=== PATIENT | female | born 1990 | race Caucasian/White ===

== ENCOUNTER 2020-09-14 12:39 | Emergency (ER) | payer BC, SELFPAY ==
[2020-09-14 12:40] VITALS: BP 131/87; PULSE 88; RESP 18; TEMP 36.6; O2SAT 98; BMI 25.7
--- NOTE | 2020-09-14 12:57 | PC.NURSE ---
calling cpd at this time
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
--- NOTE | 2020-09-14 13:10 | PC.NURSE ---
PATIENT REPORTS SHE HAS HAD A TUBAL
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
[2020-09-14 14:20] VITALS: BP 137/96; PULSE 81; RESP 16; TEMP 36.7; O2SAT 99
== END 2020-09-14 14:35 | disposition home or self-care (01) ==
PROVIDERS: Emergency Provider Emergency Medicine; PCP Pediatrics
DX: S00.83XA Contusion of other part of head, initial encounter (principal); S60.222A Contusion of left hand, initial encounter; Y04.2XXA Assault by strike against or bumped into by another person, initial encounter; Y92.019 Unspecified place in single-family (private) house as the place of occurrence of the external cause; Z88.2 Allergy status to sulfonamides; Z88.5 Allergy status to narcotic agent
CPT/HCPCS: 70450; 70486; 73130; 99282

== ENCOUNTER 2020-10-17 11:34 | Emergency (ER) | payer BC, SELFPAY ==
[2020-10-17 11:35] VITALS: BP 126/75; PULSE 85; RESP 19; TEMP 36.8; O2SAT 99; BMI 24.2
--- NOTE | 2020-10-17 12:08 | HMH.EDUTC ---
[facility] [place] Disposition Clinical Impression: Pharyngitis Qualifiers: Pharyngitis/tonsillitis etiology: unspecified etiology Qualified Code(s): J02.9 - Acute pharyngitis, unspecified Disposition: Home, Self-Care Condition on Discharge: Good Instructions: Sore Throat, DI for Pharyngitis/Tonsillopharyngitis -- Adult Additional Instructions: Drink plenty of fluids. Take tylenol for pain or fever. Return if you begin to have difficulty breathing. Follow up with your regular doctor. GO TO THE ER FOR ANY WORSENING SYMPTOMS Prescriptions: Brompheniramine/Pseudoephed/Dm [Bromfed Dm Cough Syrup] 5 ml PO Q6HP PRN #240 syrup PRN Reason: Cough Transmission Status: Received by [place] [id number] Amoxicillin [Amoxicillin 500mg Tab] 500 mg PO TID 10 Days #30 tab Transmission Status: Received by [place] [id number] predniSONE [Deltasone 10mg tablet] 10 mg PO BID 3 Days #6 tab Transmission Status: Received by [place] [id number] Referrals: Cecilia Paris [Primary Care Provider] - Forms: Work/School Release Time of Disposition: 12:10 Medical Decision Making - Medical Records Medical records reviewed: No: I reviewed the patient's medical records. - Gregorio Inquiry Pt receiving controlled substance: No Vital Signs: 10/17/20 11:35 10/17/20 12:19 Temperature 98.3 F 98.3 F Temperature Source Oral Pulse Rate 85 Pulse Rate [Right Brachial] 85 Respiratory Rate 19 19 Blood Pressure 126/75 Blood Pressure [Right Arm] 126/75 Blood Pressure Mean [Right Arm] 92 Blood Pressure Source [Right Arm] Automatic Cuff Blood Pressure Position [Right Arm] Sitting 02 Sat by Pulse Oximetry 99 Oxygen Delivery Method Room Air - Lab Data Lab results reviewed: Yes: I reviewed the patient's lab results. Lab Results 10/17/20 11:37: Strep Scn Rapid Clinic Negative Orders (Tests/Meds): ORDERS Category Date Time Status Strep Screen Confirmation Stat Micro 10/17/20 11:37 Received [facility] [place] HPI - General Stated complaint: possible strep Time Seen by Provider: 10/17/20 12:08 Mode of Arrival: Ambulatory Source of Information: Patient Limitations: No Limitations Description of Symptoms (Recalled from Triage Doc. by RN): PATIENT C/O HEADACHE AND SORE THROAT X 2 DAYS HEENT Symptoms (Recalled from RN notes): Yes Resp Symptoms (Recalled from RN notes): No Skin Symptoms (Recalled from RN notes): No MS Symptoms (Recalled from RN notes): No Functional Status (Recalled from RN notes): WNL - History of Present Illness Provider Complaint: She c/o sore throat for the past 2 days. Her son was recently diagnosed with strep throat. She denies any covid exposure and states that she does not need to be tested. - Related Data Previous Rx's Medication Instructions Recorded Amoxicillin [Amoxicillin 500mg Tab] 500 mg PO TID 10 Days #30 tab 10/17/20 Brompheniramine/Pseudoephed/Dm 5 ml PO Q6HP PRN #240 syrup 10/17/20 [Bromfed Dm Cough Syrup] predniSONE [Deltasone 10mg tablet] 10 mg PO BID 3 Days #6 tab 10/17/20 Allergies Allergy/AdvReac Type Severity Reaction Status Date / Time morphine Allergy Verified 09/14/20 13:05 Sulfa (Sulfonamide Allergy Verified 09/14/20 13:05 Antibiotics) - Worker's Comp Is this a Worker's Comp case?: No [facility] History - Hepatitis A Screen Drug use history?: No High risk sexual behaviors?: No History of sexually transmitted infection?: No Currently employed?: No Childcare worker?: No Do you have indoor plumbing?: Yes Do you have electricity?: Yes Attestation statement:: This patient has been screened for Hepatitis A risk factors. I have reviewed the patient's past medical history: Yes ROS Obtained: Yes All systems reviewed & no additional complaints - Constitutional Constitutional: Reports system reviewed and no additional complaints, except as docu - Eyes Eyes: Reports system reviewed and no additional complaints, except as docu - ENT Ears, Nose, Mouth, and T
[2020-10-17 12:19] VITALS: BP 126/75; PULSE 85; RESP 19; TEMP 36.8; O2SAT 99
[2020-10-17 20:28] LABS: UTC Strep Screen (Rapid) Negative (Negative)
== END 2020-10-17 12:25 | disposition home or self-care (01) ==
PROVIDERS: Emergency Provider Nurse Practitioner Family; PCP Pediatrics
DX: J02.9 Acute pharyngitis, unspecified (principal); R51.9 Headache, unspecified
CPT/HCPCS: 87880; 99202; G0463

== ENCOUNTER 2020-11-24 15:20 | Emergency (ER) | payer BC, SELFPAY ==
[2020-11-24 15:20] VITALS: BP 135/87; PULSE 81; RESP 19; TEMP 36.9; O2SAT 99; BMI 25.4
[2020-11-24 16:09] VITALS: BP 135/87; PULSE 81; RESP 18; TEMP 36.9; O2SAT 99
--- NOTE | 2020-11-24 16:11 | HMH.EDUTC ---
[facility] [place] Clinical Impression: UTI (urinary tract infection) Qualifiers: Urinary tract infection type: site unspecified Hematuria presence: with hematuria Qualified Code(s): N39.0 - Urinary tract infection, site not specified Disposition: Home, Self-Care Condition on Discharge: Good Instructions: DI for Urinary Tract Infection (UTI) Additional Instructions: Drink plenty of fluids. Take tylenol or ibuprofen for pain or fever. Take the medications as directed. Follow up with your regular doctor. GO TO THE ER FOR ANY WORSENING SYMPTOMS The pyridium will make your urine turn orange, this is an expected side effect. It will stain your clothes if it comes into contact with them. Prescriptions: Ondansetron [Zofran 4mg ODT] 4 mg PO Q8HP PRN #12 tab.rapdis PRN Reason: Nausea Transmission Status: Received by [place] [id number] Ciprofloxacin HCl [Cipro 500mg Tab] 500 mg PO BID 7 Days #14 tab Transmission Status: Received by [place] [id number] Phenazopyridine HCl [Pyridium 200mg Tablet] 200 pow PO TID #6 tab Transmission Status: Received by [place] [id number] Referrals: Cecilia Paris [Primary Care Provider] - Forms: Work/School Release Time of Disposition: 16:14 Medical Decision Making - Medical Records Medical records reviewed: No: I reviewed the patient's medical records. - Gregorio Inquiry Pt receiving controlled substance: No Vital Signs: 11/24/20 15:20 11/24/20 16:09 Temperature 98.4 F 98.4 F Temperature Source Oral Oral Pulse Rate 81 Pulse Rate [Left Radial] 81 Respiratory Rate 19 18 Blood Pressure 135/87 Blood Pressure [Right Arm] 135/87 Blood Pressure Mean [Right Arm] 103 Blood Pressure Source Automatic Cuff Blood Pressure Source [Right Arm] Automatic Cuff Blood Pressure Position Sitting Blood Pressure Position [Right Arm] Sitting 02 Sat by Pulse Oximetry 99 Oxygen Delivery Method Room Air Room Air - Lab Data Lab results reviewed: Yes: I reviewed the patient's lab results. Lab Results 11/24/20 15:49: Urine Color Dark yellow, Urine Appearance Clear, Urine pH 6.0, Ur Specific [place] >= 1.030, Urine Protein 3+, Urine Glucose (UA) Negative, Urine Ketones Moderate, Urine Blood 1+, Urine Nitrate Positive A, Urine Bilirubin 1+ A, Urine Urobilinogen 1, Ur Leukocyte Esterase Trace 11/24/20 : Urine Color Dk yellow, Urine Appearance Cloudy, Urine pH 6.0, Ur Specific [place] >= 1.030, Urine Protein 1+, Urine Glucose (UA) Negative, Urine Ketones Trace, Urine Blood 1+, Urine Nitrate Positive, Urine Bilirubin 1+ A, Urine Urobilinogen 1.0, Ur Leukocyte Esterase 1+ A, Urine RBC 10-20, Urine WBC 5-10, Ur Squamous Epith Cells 3-5, Calcium Oxalate Crystal 1+, Urine Bacteria 1+ Orders (Tests/Meds): ORDERS Category Date Time Status Urine Culture Stat Micro 11/24/20 [place] [facility] [place] - General Stated complaint: Possible UTI Time Seen by Provider: 11/24/20 16:00 Mode of Arrival: Ambulatory Source of Information: Patient Limitations: No Limitations Description of Symptoms (Recalled from Triage Doc. by RN): c/o burning with urination for 3 days. Exposed to sti HEENT Symptoms (Recalled from RN notes): No Resp Symptoms (Recalled from RN notes): No Skin Symptoms (Recalled from RN notes): No MS Symptoms (Recalled from RN notes): No Functional Status (Recalled from RN notes): wnl - History of Present Illness Provider Complaint: She c/o feeling like she has a uti for the past 2 days. - Related Data Previous Rx's Medication Instructions Recorded Amoxicillin [Amoxicillin 500mg Tab] 500 mg PO TID 10 Days #30 tab 10/17/20 Brompheniramine/Pseudoephed/Dm 5 ml PO Q6HP PRN #240 syrup 10/17/20 [Bromfed Dm Cough Syrup] predniSONE [Deltasone 10mg tablet] 10 mg PO BID 3 Days #6 tab 10/17/20 Fluconazole [Diflucan 150mg tab] 150 mg PO ONCE #1 tab 10/23/20 Ciprofloxacin HCl [Cipro 500mg 500 mg PO BID 7 Days #14 tab 11/24/20 Tab] Ondansetron [Zofran 4mg
[2020-11-24 17:35] LABS: Apearance,Urine Clear (Clear); Color,Urine Dark Yellow (Yellow)
[2020-11-24 17:36] LABS: Blood, Urine 1+ (Negative); Glucose,Urine (UA) Negative (Negative); Ketones,Urine Moderate (Negative); Protein,Urine 3+ (Negative); Specific Gravity, Urine >= 1.030 (1.005-1.030)
[2020-11-24 17:37] LABS: Bilirubin,Urine 1+ (Negative); UTC Leukocyte Esterase,Urine Trace (Negative); UTC Nitrate,Urine Positive (Negative); Urobilinogen,Urine 1 EU/dl (0.2)
[2020-11-24 22:07] LABS: Microscopic, Urine URINE MICROSCOPIC (MICROSCOPIC)
[2020-11-24 22:14] LABS: Appearance,Urine CLOUDY (Clear); Blood, Urine 1+ (Negative); Color,Urine DK YELLOW (Yellow); Glucose,Urine (UA) Negative (Negative); Ketones,Urine TRACE (Negative); Leukocyte Esterase,Urine 1+ (Negative); Nitrate,Urine POSITIVE (Negative); Protein,Urine 1+ (Negative); Specific Gravity, Urine >= 1.030 (1.005-1.030)
[2020-11-24 22:21] LABS: Bilirubin,Urine 1+ (Negative)
[2020-11-24 22:24] LABS: Bacteria,Urine 1+ /lpf; Calcium Oxalate Crystals,Urine 1+ /lpf
[2020-11-27 19:47] LABS: Neisseria gonorrhoeae, NAA Negative (Negative)
== END 2020-11-24 16:19 | disposition home or self-care (01) ==
PROVIDERS: Emergency Provider Nurse Practitioner Family; PCP Pediatrics
DX: N30.00 Acute cystitis without hematuria (principal); B96.20 Unspecified Escherichia coli [E. coli] as the cause of diseases classified elsewhere; Z88.2 Allergy status to sulfonamides; Z88.5 Allergy status to narcotic agent
CPT/HCPCS: 81001; 81003; 87086; 87088; 87186; 87491; 87591; 99202; G0463

== ENCOUNTER 2020-11-25 09:45 | Emergency (ER) | payer BC, SELFPAY ==
[2020-11-25 09:46] VITALS: BP 139/74; PULSE 73; RESP 16; TEMP 36.6; O2SAT 98; BMI 25.6
[2020-11-25 10:24] LABS: Basophils % 0.5 % (0.1-2.0); Eosinophils # 0.1 K/mm3 (0.0-0.4); Eosinophils % 1.4 % (0.1-12.0); Hematocrit 43.6 % (37.0-47.0); Hemoglobin 14.1 g/dL (12.2-16.2); Lymphocytes # 1.4 K/mm3 (0.7-4.5); Lymphocytes % 16.6 % (10-50); Mean Corpuscular HGB Conc 32.3 g/dL (31.8-35.4); Mean Corpuscular Hemoglobin 32.1 pg (27.0-31.2); Mean Corpuscular Volume 99.4 fl (81-99); Monocytes # 0.5 K/mm3 (0.1-1.0); Monocytes % 6.2 % (1.7-9.3); Neutrophils # 6.5 K/mm3 (1.8-7.8); Neutrophils % 75.3 % (37.0-80.0); Platelet Count 260 K/mm3 (142-424); Red Blood Count 4.39 M/mm3 (4.20-5.40); Red Cell Distribution Width 12.3 % (11.5-17.5); White Blood Count 8.6 K/mm3 (4.8-10.8)
[2020-11-25 10:34] LABS: Chloride 104 mmol/L (98-107); Potassium 3.9 mmoL/L (3.5-5.1); Sodium 139 mmol/L (136-145)
[2020-11-25 10:36] LABS: Alanine Aminotransferase 16 U/L (12-78); Aspartate Amino Transferase 26 U/L (14-36); Blood Urea Nitrogen 21 mg/dl (7-17); Creatinine Clearance Estimated 104 mL/min (50-200); Estimated Glomerular Filt Rate 85 ml/min (>60); GFR (African American) 103 ML/MIN (>60)
[2020-11-25 10:37] LABS: Albumin Level 4.7 g/dl (3.5-5.0); Albumin/Globulin Ratio 1.7 (1.1-1.8); Alkaline Phosphatase 101 U/L (38-126); Anion Gap 11.9 mEq/L (5-15); Bilirubin,Total 0.9 mg/dl (0.2-1.3); Calcium 9.3 mg/dl (8.4-10.2); Carbon Dioxide 27 mmol/L (22.0-30.0); Globulin 2.8 g/dL (1.3-3.2); Glucose 115 mg/dl (74-100); Total Protein,Serum 7.5 g/dl (6.3-8.2)
[2020-11-25 10:44] LABS: HCG Qualitative, Serum Negative (Negative)
[2020-11-25 10:49] VITALS: BP 113/61; PULSE 100; RESP 18; O2SAT 96
--- NOTE | 2020-11-25 11:08 | PC.NURSE ---
PT STATES FEELING IMPROVED AFTER MEDS GIVEN
--- NOTE | 2020-11-25 11:23 | HMH.EDGENADL ---
ED Disposition Clinical Impression: Pyelonephritis Disposition: Home, Self-Care Condition on Discharge: Good Instructions: DI for Kidney Infection Additional Instructions: Or you develop fever over the next 2 days please return to your primary care or the ER. Prescriptions: Cefdinir [Omnicef 300mg Capsule] 300 mg PO BID #20 cap Transmission Status: Pending to [place] [id number] Ondansetron [Zofran 4mg ODT] 4 mg PO TIDP PRN #9 tab PRN Reason: Nausea Transmission Status: Pending to [place] [id number] Referrals: Rebekah Paris PA [Primary Care Provider] - Time of Disposition: 13:25 - Critical Care Critical Care Time: No Attestation: On 11/25/20, the high probability of a clinically significant, sudden or life threatening deterioration of the following system(s) required my full and direct attention, intervention and personal management. The time I documented below is in addition to time spent performing reported procedures but includes the following listed in this critical care notation. Medical Decision Making - Medical Records Medical records reviewed: Yes: I reviewed the patient's medical records. - Gregorio Inquiry Pt receiving controlled substance: No Vital Signs: 11/25/20 09:46 11/25/20 10:49 Temperature 98 F Temperature Source Oral Pulse Rate 100 H Pulse Rate [Radial] 73 Respiratory Rate 16 18 Blood Pressure 113/61 Blood Pressure [Right Arm] 139/74 Blood Pressure Mean [Right Arm] 95 Blood Pressure Source [Right Arm] Manual Cuff/ Palpation Blood Pressure Position [Right Arm] Sitting 02 Sat by Pulse Oximetry 98 96 Oxygen Delivery Method Room Air - Lab Data Lab Results 11/25/20 10:05: WBC 8.6, RBC 4.39, Hgb 14.1, Hct 43.6, MCV 99.4 H, MCH 32.1 H, MCHC 32.3, RDW 12.3, Plt Count 260, MPV 7.0 L, Neut % (Auto) 75.3, Lymph % (Auto) 16.6, [place] % (Auto) 6.2, Eos % (Auto) 1.4, Baso % (Auto) 0.5, Neut # (Auto) 6.5, Lymph # (Auto) 1.4, [place] # (Auto) 0.5, Eos # (Auto) 0.1, Baso # (Auto) 0.0 11/25/20 10:05: Sodium 139, Potassium 3.9, Chloride 104, Carbon Dioxide 27, Anion Gap 11.9, BUN 21 H, Creatinine 0.80, Estimated Creat Clear 104, Estimated GFR 85, Est GFR ( Amer) 103, Glucose 115 H, Calcium 9.3, Total Bilirubin 0.9, AST 26, ALT 16, Alkaline Phosphatase 101, Total Protein 7.5, Albumin 4.7, Globulin 2.8, Albumin/Globulin Ratio 1.7 11/25/20 10:05: Serum HCG, Qual Negative Result diagrams: 11/25/20 10:05 11/25/20 10:05 Orders (Tests/Meds): ED MEDICATIONS Discontinued Medications Generic Name Dose Route Start Last Admin Trade Name Mazin PRN Reason Stop Dose Admin Fentanyl Citrate 50 mcg 11/25/20 12:31 11/25/20 12:38 Fentanyl 100mcg/2ml Vial IV 11/25/20 12:32 50 mcg ONCE ONE Administration Ceftriaxone Sodium 1 gm/ 50 mls @ 100 mls/hr 11/25/20 10:17 11/25/20 10:18 Sodium Chloride IV 11/25/20 10:46 100 mls/hr ONCE ONE Administration Protocol Ketorolac Tromethamine 30 mg 11/25/20 09:54 11/25/20 10:19 Ketorolac 30mg/Ml Vial IM 11/25/20 09:55 Not Given ONCE ONE Ketorolac Tromethamine 30 mg 11/25/20 10:16 11/25/20 10:18 Ketorolac 30mg/Ml Vial IV 11/25/20 10:17 30 mg ONCE ONE Administration Medical Decision Narrative: 30-year-old female with urinary tract infection diagnosed yesterday treated with ciprofloxacin. Patient now has evidence of early pyelonephritis. Urinalysis yesterday had crystals as well as nitrite positive UTI. No culture results as of this time. CT scan of the abdomen demonstrates no obstructing renal stones. She will be switched to cefdinir with a dose of ceftriaxone here in the department as I feel that she has not failed outpatient therapy of Cipro was not first-line choice of antibiotic based on current antibiogram General Adult HPI - General Chief complaint: PAIN Stated complaint: back pain Time Seen by Provider: 11/25/20 10:00 Mode of Arrival: Ambulatory Limitations: No Limitations
--- NOTE | 2020-11-25 11:25 | CT_ITS ---
PROCEDURE: CT ABDOMEN PELVIS WO CON CLINICAL INDICATION: flank pain eval stones Left lower quadrant pain, left flank pain COMPARISON: No exams were available for comparison TECHNIQUE: Axial images obtained with sagittal and coronal reformats. All CT scans at the facility use one or more dose reduction, viz: automated exposure control, ma/kV adjustment per patient size (including targeted exams where dose is matched to indication, i.e. head), or iterative reconstruction technique. FINDINGS: LOWER THORAX: No acute finding ABDOMEN & PELVIS: The liver, spleen, adrenal glands, and pancreas have an unremarkable unenhanced appearance. No radiopaque gallstones identified. There is a 3 mm nonobstructing stone in the lower pole of the left kidney. No hydronephrosis. No ureteral calculi parent. There is a moderate amount of retained colonic feces throughout the colon most prominent in the cecal region with the cecum measuring 8 cm in diameter. There is given history of prior appendectomy. No evidence of small-bowel obstruction. No obvious pelvic mass however pelvic structures are somewhat ill-defined secondary to the lack of IV and oral contrast. Multiple unopacified bowel loops in the abdomen or pelvis which could obscure or mimic pathology. If symptoms persist, consider repeat exam with IV and oral contrast. No acute bony findings. IMPRESSION: 1. Moderate amount of retained colonic feces 2. Nonobstructing left renal calculus. Dictated by: Sawyer Kam MD 11/25/2020 13:03 Sawyer Kam MD in [place] 11/25/2020 13:03
[2020-11-25 13:10] VITALS: BP 122/71; PULSE 65; RESP 16; TEMP 36.7; O2SAT 97
== END 2020-11-25 13:33 | disposition home or self-care (01) ==
PROVIDERS: Emergency Provider Student in an Organized Health Care Education/Training Program; PCP Nurse Practitioner Family
DX: N12 Tubulo-interstitial nephritis, not specified as acute or chronic (principal); Z87.442 Personal history of urinary calculi
CPT/HCPCS: 74176; 80053; 84703; 85025; 96365; 99283

== ENCOUNTER 2021-01-21 10:48 | Emergency (ER) | payer BC, SELFPAY ==
[2021-01-21 11:09] VITALS: BP 125/70; PULSE 91; RESP 22; TEMP 36.6; O2SAT 99; BMI 22.1
[2021-01-21 11:23] LABS: Apearance,Urine Cloudy (Clear); Bilirubin,Urine Negative (Negative); Blood, Urine 1+ (Negative); Color,Urine Dark Yellow (Yellow); Glucose,Urine (UA) Negative (Negative); Ketones,Urine Negative (Negative); Protein,Urine 1+ (Negative); UTC Leukocyte Esterase,Urine 2+ (Negative); Urobilinogen,Urine 1 EU/dl (0.2)
[2021-01-21 11:24] LABS: UTC Nitrate,Urine Negative (Negative)
--- NOTE | 2021-01-21 11:39 | HMH.EDUTC ---
[facility] [place] Clinical Impression: UTI (urinary tract infection) Qualifiers: Urinary tract infection type: site unspecified Hematuria presence: with hematuria Qualified Code(s): N39.0 - Urinary tract infection, site not specified Disposition: Home, Self-Care Condition on Discharge: Good Instructions: Urinary Tract Infection, DI for Urinary Tract Infection (UTI), Cefdinir Additional Instructions: *Increase fluids. Water not Soda or Tea *Start antibiotic immediately and be sure to take as ordered for the FULL length of time although you should start to see improvement over the next 48 hours *Pyridium as needed Remember this medication will turn your urine [place]. This is normal but it will stain what ever it gets on *You should not use Pyridium for more than 48 hours. If so , follow up with your primary physician to review urine culture and ensure that antibiotic is adequate for infection *Be SURE to follow up anytime for new or worsening symptoms with your family doctor. AND in 48 hours for urine culture results with your family doctor, if you do not have a doctor then you may call back to the [facility] for urine culture results and further treatment. We do recommend that you choose and establish care with a Primary Care Physician. AND follow up with them in 10-14 days to repeat UA to ensure infection is resolved and blood no longer present *Be sure to let your PCP know that we sent urine cultures from the [facility] so they can follow up to ensure that you area the on the correct antibiotic Call your doctor office and make appointment for 48 hours (2 days from today) to follow up and get the results of your urine culture and further treatment Prescriptions: Cefdinir [Omnicef 300mg Capsule] 300 mg PO BID #20 cap Transmission Status: Received by [place] [id number] Phenazopyridine HCl [Pyridium 200mg Tablet] 200 pow PO TID #6 tab Transmission Status: Received by [place] [id number] Referrals: Cecilia Paris [Primary Care Provider] - As needed Medical Decision Making - Gregorio Inquiry Pt receiving controlled substance: No Gregorio was queried for this patient: No Vital Signs: 01/21/21 11:09 01/21/21 11:54 Temperature 97.9 F 98.6 F Temperature Source Oral Pulse Rate 85 Pulse Rate [Right Brachial] 91 H Respiratory Rate 22 19 Blood Pressure 147/91 H Blood Pressure [Right Arm] 125/70 Blood Pressure Mean [Right Arm] 88 Blood Pressure Source [Right Arm] Automatic Cuff Blood Pressure Position [Right Arm] Sitting 02 Sat by Pulse Oximetry 99 - Lab Data Lab results reviewed: Yes: I reviewed the patient's lab results. Lab Results 01/21/21 11:03: Urine Color Dark yellow, Urine Appearance Cloudy, Urine pH 8.0, Ur Specific [place] 1.020, Urine Protein 1+, Urine Glucose (UA) Negative, Urine Ketones Negative, Urine Blood 1+, Urine Nitrate Negative, Urine Bilirubin Negative, Urine Urobilinogen 1, Ur Leukocyte Esterase 2+ A Orders (Tests/Meds): ED MEDICATIONS Discontinued Medications Generic Name Dose Route Start Last Admin Trade Name Freq PRN Reason Stop Dose Admin Ceftriaxone Sodium 1 gm 01/21/21 11:45 01/21/21 11:52 Ceftriaxone 1gm Vial IM 01/21/21 11:46 1 gm ONCE ONE Administration Lidocaine HCl 0 ml 01/21/21 11:45 01/21/21 11:51 Lidocaine 1% 5ml Pf Vial IM 01/21/21 11:46 2.5 ml ONCE ONE Administration ORDERS Category Date Time Status Urine Culture Stat Micro 01/21/21 11:04 [place] [facility] [place] - General Stated complaint: possible kidney stone Time Seen by Provider: 01/21/21 11:39 Mode of Arrival: Ambulatory Source of Information: Patient Description of Symptoms (Recalled from Triage Doc. by RN): pt states that she is having left side flank pain along with bladder spasms that started 3 wks ago HEENT Symptoms (Recalled from RN notes): No Resp Symptoms (Recalled from RN notes): No Skin Symptoms (Recalled from RN notes): No MS Symptoms (Recalled from RN notes): No Functional
[2021-01-21 11:54] VITALS: BP 147/91; PULSE 85; RESP 19; TEMP 37
== END 2021-01-21 11:56 | disposition home or self-care (01) ==
PROVIDERS: Emergency Provider Nurse Practitioner; PCP Pediatrics
DX: N30.00 Acute cystitis without hematuria (principal); B96.20 Unspecified Escherichia coli [E. coli] as the cause of diseases classified elsewhere
CPT/HCPCS: 81003; 87086; 87088; 87186; 96372; 99202; G0463

== ENCOUNTER 2021-01-26 22:28 | Emergency (ER) | payer BC, SELFPAY ==
[2021-01-26 22:33] VITALS: BP 157/101; PULSE 75; RESP 19; TEMP 36.8; O2SAT 100; BMI 27.4
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
[2021-01-26 22:49] VITALS: BP 121/70; PULSE 80; RESP 16; TEMP 36.8; O2SAT 98
== END 2021-01-26 22:52 ==
PROVIDERS: Emergency Provider Emergency Medicine
DX: S10.93XA Contusion of unspecified part of neck, initial encounter (principal); S40.022A Contusion of left upper arm, initial encounter; S40.021A Contusion of right upper arm, initial encounter; Y09 Assault by unspecified means; N39.0 Urinary tract infection, site not specified; Z88.2 Allergy status to sulfonamides; Z88.5 Allergy status to narcotic agent
CPT/HCPCS: 99282

== ENCOUNTER 2022-04-15 09:35 | Emergency (ER) | payer BC, SELFPAY ==
[2022-04-15 10:15] VITALS: BP 132/86; PULSE 78; RESP 19; TEMP 36.7; O2SAT 99; BMI 24.1
--- NOTE | 2022-04-15 10:29 | EXP.UTC ---
Discharge Plan Disposition Patient Disposition: Home, Self-Care Condition: Good Prescriptions Prescriptions: New benzonatate [benzonatate] 100 mg capsule 100 mg PO TIDP PRN (Reason: Cough) Qty: 30 0RF ondansetron 4 mg Tablet,Disintegrating 4 mg PO Q8H PRN (Reason: Nausea) Qty: 12 0RF oseltamivir [Tamiflu] 75 mg capsule 75 mg PO BID Qty: 10 0RF No Action prednisone 10 MG tablet 10 mg PO BID 3 Days Qty: 6 0RF amoxicillin 500 MG tablet 500 mg PO TID 10 Days Qty: 30 0RF [id number] 118 ML syrup 5 ml PO Q6HP PRN (Reason: Cough) Qty: 240 0RF fluconazole 150 MG tablet 150 mg PO ONCE Qty: 1 2RF ondansetron 4 MG tablet,disintegrating 4 mg PO TIDP PRN (Reason: Nausea) Qty: 9 0RF cefdinir 300 MG capsule 300 mg PO BID Qty: 20 0RF phenazopyridine 200 MG tablet 200 pow PO TID Qty: 6 0RF ciprofloxacin HCl 500 MG tablet 500 mg PO BID 7 Days Qty: 14 0RF ondansetron 4 MG tablet,disintegrating 4 mg PO Q8HP PRN (Reason: Nausea) Qty: 12 0RF phenazopyridine 200 MG tablet 200 pow PO TID Qty: 6 0RF cefdinir 300 MG capsule 300 mg PO BID Qty: 20 0RF Referrals Follow up/Referrals: Jose Valenzuela [Primary Care Provider] - See instructions Activity Restrictions/Add. Instructions Additional Instructions/Restrictions: Drink plenty of fluids. Take tylenol or ibuprofen for pain or fever. Take the medications as directed. Follow up with your regular doctor. GO TO THE ER FOR ANY WORSENING SYMPTOMS Clinical Impressions Clinical Impression: Acute viral syndrome Instructions Patient Instructions: DI for Influenza -- Adult, Oseltamivir Discharge ED Provider: Branden Vail [facility] General Stated complaint: Fever, Bodyaches Mode of Arrival: Ambulatory Source of Information: Patient Limitations: No Limitations Time Seen by Provider: 04/15/22 10:29 Description of Symptoms (Recalled from Triage Doc. by RN): PATIENT C/O BODY ACHES, DRY COUGH SINCE YESTERDAY. EXPOSED TO STREP AND FLU HEENT Symptoms (Recalled from RN notes): No Resp Symptoms (Recalled from RN notes): Yes Skin Symptoms (Recalled from RN notes): No MS Symptoms (Recalled from RN notes): No Functional Status (Recalled from RN notes): WNL History of Present Illness Provider Complaint: She states that for the past 1 days she has had sore throat, chills, body aches and low grade fever. Related Data Previous Rx's Medication Instructions Recorded amoxicillin 500 mg tablet 500 mg PO TID 10 days #30 tabs 10/17/20 qoddtrhowmtzuzk-rfpltbdfalvctga-QP 5 ml PO Q6HP PRN Cough ##240 10/17/20 2 mg-30 mg-10 mg/5 mL oral syrup prednisone 10 mg tablet 10 mg PO BID 3 days #6 tabs 10/17/20 fluconazole 150 mg tablet 150 mg PO ONCE #1 tab 10/23/20 ciprofloxacin HCl 500 mg tablet 500 mg PO BID 7 days #14 tabs 11/24/20 ondansetron 4 mg disintegrating 4 mg PO Q8HP PRN Nausea ##12 11/24/20 tablet phenazopyridine 200 mg tablet 200 pow PO TID #6 tabs 11/24/20 cefdinir 300 mg capsule 300 mg PO BID #20 caps 11/25/20 ondansetron 4 mg disintegrating 4 mg PO TIDP PRN Nausea #9 tabs 11/25/20 tablet cefdinir 300 mg capsule 300 mg PO BID #20 caps 01/21/21 phenazopyridine 200 mg tablet 200 pow PO TID #6 tabs 01/21/21 benzonatate 100 mg capsule 100 mg PO TIDP PRN Cough #30 caps 04/15/22 ondansetron 4 mg disintegrating 4 mg PO Q8H PRN Nausea #12 tabs 04/15/22 tablet oseltamivir 75 mg capsule (Tamiflu) 75 mg PO BID #10 caps 04/15/22 Allergies Allergy/AdvReac Type Severity Reaction Status Date / Time codeine Allergy Verified 04/15/22 10:38 morphine Allergy Verified 09/14/20 13:05 Sulfa (Sulfonamide Allergy Verified 09/14/20 13:05 Antibiotics) Worker's Comp Is this a Worker's Comp case?: No [facility] Disclaimer: The information contained in this section may have been updated after the patient was seen, as this information can be updated by other users. Medical History (Revie
[2022-04-15 10:30] LABS: Adenovirus,PCR Not Detected (NotDetected); Bordetella Pertussis Not Detected (NotDetected); Chlamydophila Pneumoniae, PCR Not Detected (NotDetected); Coronavirus 19, PCR Not Detected (NotDetected); Coronavirus 229E Not Detected (NotDetected); Coronavirus NL63 Not Detected (NotDetected); Coronavirus OC43 Not Detected (NotDetected); Coronovirus HKU1,PCR Not Detected (NotDetected); Human Metapneumovirus Not Detected (NotDetected); Influenza A, PCR Not Detected (NotDetected); Influenza AH1, 2009 Not Detected (NotDetected); Influenza AH1, PCR Not Detected (NotDetected); Influenza AH3,PCR Not Detected (NotDetected); Influenza B, PCR Not Detected (NotDetected); Mycoplasma Pneumoniae, PCR Not Detected (NotDetected); Parainfluenza 1, PCR Not Detected (NotDetected); Parainfluenza 2, PCR Not Detected (NotDetected); Parainfluenza 3, PCR Not Detected (NotDetected); Parainfluenza 4, PCR Not Detected (NotDetected); Respiratory Syncytial Virus Not Detected (NotDetected); Rhinovirus/Enterovirus Not Detected (NotDetected)
[2022-04-15 10:41] LABS: UTC Strep Screen (Rapid) Negative (Negative)
[2022-04-15 11:10] VITALS: BP 132/86; PULSE 78; RESP 19; TEMP 36.7; O2SAT 99
== END 2022-04-15 11:23 | disposition home or self-care (01) ==
PROVIDERS: Emergency Provider Nurse Practitioner Family; PCP Pediatrics
DX: R50.9 Fever, unspecified (principal); R52 Pain, unspecified; B34.9 Viral infection, unspecified
CPT/HCPCS: 87581; 87632; 87798; 87880; 99212; C9803; G0463; U0003; U0005

== ENCOUNTER 2022-06-13 12:44 | Emergency (ER) | payer BC, SELFPAY ==
[2022-06-13 13:30] VITALS: BP 140/76; PULSE 91; RESP 20; TEMP 36.7; O2SAT 97; BMI 23.7
--- NOTE | 2022-06-13 13:30 | EXP.UTC ---
Discharge Plan Disposition Patient Disposition: Home, Self-Care Condition: Good Prescriptions Prescriptions: New amoxicillin [amoxicillin] 500 mg tablet 500 mg PO TID 10 Days Qty: 30 0RF methylprednisolone 4 mg Tablets,Dose Pack 4 mg PO DIRECTED Qty: 21 0RF ondansetron 4 mg Tablet,Disintegrating 4 mg PO Q8H PRN (Reason: Nausea) Qty: 12 0RF No Action prednisone 10 MG tablet 10 mg PO BID 3 Days Qty: 6 0RF amoxicillin 500 MG tablet 500 mg PO TID 10 Days Qty: 30 0RF poirmoujfnhmipu-qhbnwdomg-KZ 118 ML syrup 5 ml PO Q6HP PRN (Reason: Cough) Qty: 240 0RF fluconazole 150 MG tablet 150 mg PO ONCE Qty: 1 2RF ondansetron 4 MG tablet,disintegrating 4 mg PO TIDP PRN (Reason: Nausea) Qty: 9 0RF cefdinir 300 MG capsule 300 mg PO BID Qty: 20 0RF phenazopyridine 200 MG tablet 200 pow PO TID Qty: 6 0RF ciprofloxacin HCl 500 MG tablet 500 mg PO BID 7 Days Qty: 14 0RF ondansetron 4 MG tablet,disintegrating 4 mg PO Q8HP PRN (Reason: Nausea) Qty: 12 0RF phenazopyridine 200 MG tablet 200 pow PO TID Qty: 6 0RF cefdinir 300 MG capsule 300 mg PO BID Qty: 20 0RF benzonatate [benzonatate] 100 mg capsule 100 mg PO TIDP PRN (Reason: Cough) Qty: 30 0RF ondansetron 4 mg Tablet,Disintegrating 4 mg PO Q8H PRN (Reason: Nausea) Qty: 12 0RF oseltamivir [Tamiflu] 75 mg capsule 75 mg PO BID Qty: 10 0RF Referrals Follow up/Referrals: Jose Valenzuela [Primary Care Provider] - See instructions Activity Restrictions/Add. Instructions Additional Instructions/Restrictions: Drink plenty of fluids. Take tylenol or ibuprofen for pain or fever. Take the medications as directed. Follow up with your regular doctor. GO TO THE ER FOR ANY WORSENING SYMPTOMS Clinical Impressions Clinical Impression: Strep throat Stand Alone Forms Stand Alone Forms: Work/School Release Instructions Patient Instructions: DI for Strep Throat, Strep Throat Discharge ED Provider: Branden Vail [facility] HPI General Stated complaint: sore throat, body aches, SHAH Time Seen by Provider: 06/13/22 13:30 History of Present Illness Provider Complaint: She states that for the past 3 days she has had worsening sore throat, fever and chills. Related Data Previous Rx's Medication Instructions Recorded amoxicillin 500 mg tablet 500 mg PO TID 10 days #30 tabs 10/17/20 ljyrlkhbpfuqbfb-kzpidyiabfeftgq-YC 5 ml PO Q6HP PRN Cough ##240 10/17/20 2 mg-30 mg-10 mg/5 mL oral syrup prednisone 10 mg tablet 10 mg PO BID 3 days #6 tabs 10/17/20 fluconazole 150 mg tablet 150 mg PO ONCE #1 tab 10/23/20 ciprofloxacin HCl 500 mg tablet 500 mg PO BID 7 days #14 tabs 11/24/20 ondansetron 4 mg disintegrating 4 mg PO Q8HP PRN Nausea ##12 11/24/20 tablet phenazopyridine 200 mg tablet 200 pow PO TID #6 tabs 11/24/20 cefdinir 300 mg capsule 300 mg PO BID #20 caps 11/25/20 ondansetron 4 mg disintegrating 4 mg PO TIDP PRN Nausea #9 tabs 11/25/20 tablet cefdinir 300 mg capsule 300 mg PO BID #20 caps 01/21/21 phenazopyridine 200 mg tablet 200 pow PO TID #6 tabs 01/21/21 benzonatate 100 mg capsule 100 mg PO TIDP PRN Cough #30 caps 04/15/22 ondansetron 4 mg disintegrating 4 mg PO Q8H PRN Nausea #12 tabs 04/15/22 tablet oseltamivir 75 mg capsule (Tamiflu) 75 mg PO BID #10 caps 04/15/22 amoxicillin 500 mg tablet 500 mg PO TID 10 days #30 tabs 06/13/22 methylprednisolone 4 mg tablets in 4 mg PO DIRECTED #21 tabs 06/13/22 a dose pack ondansetron 4 mg disintegrating 4 mg PO Q8H PRN Nausea #12 tabs 06/13/22 tablet Allergies Allergy/AdvReac Type Severity Reaction Status Date / Time codeine Allergy Verified 04/15/22 10:38 morphine Allergy Verified 09/14/20 13:05 Sulfa (Sulfonamide Allergy Verified 09/14/20 13:05 Antibiotics) [facility] Disclaimer: The information contained in this section may have been updated after the patient was seen, as this information can be upda
[2022-06-13 13:32] LABS: UTC Strep Screen (Rapid) Positive (Negative)
[2022-06-13 14:06] VITALS: BP 140/76; PULSE 91; RESP 20; TEMP 36.7; O2SAT 97
== END 2022-06-13 14:06 | disposition home or self-care (01) ==
PROVIDERS: Emergency Provider Nurse Practitioner Family; PCP Pediatrics
DX: J02.0 Streptococcal pharyngitis (principal)
CPT/HCPCS: 87880; 99212; 99213; G0463

== ENCOUNTER 2023-09-03 08:29 | Emergency (ER) | payer BC, SELFPAY ==
[2023-09-03 08:45] VITALS: BP 134/82; PULSE 90; RESP 19; TEMP 36.5; O2SAT 100; BMI 26.4
--- NOTE | 2023-09-03 08:46 | XR_ITS ---
PROCEDURE INFORMATION: Exam: XR Left Elbow Exam date and time: 09/03/2023 8:45 AM Age: 33 years old Clinical indication: Pain; Elbow; Left; Additional info: Fall TECHNIQUE: Imaging protocol: Radiologic exam of the left elbow. Views: 3 or more views. COMPARISON: CR XR HAND LT MIN 3V 09/14/2020 1:14 PM FINDINGS: Bones/joints: Medial and lateral columns are without fracture. Radial head and proximal ulna are without fracture. No joint effusion. Soft tissues: Normal. IMPRESSION: Unremarkable elbow.
--- NOTE | 2023-09-03 08:49 | EXP.UTC ---
Discharge Plan Disposition Patient Disposition: Home, Self-Care Condition: Good Prescriptions Prescriptions: New ibuprofen [IBU] 800 mg tablet 800 mg PO Q8HP PRN (Reason: Moderate Pain) Qty: 30 0RF No Action lamotrigine 200 mg tablet 200 mg PO DAILY dextroamphetamine-amphetamine [Adderall XR] 30 mg capsule,extended release 24hr 30 mg PO DAILY Referrals Follow up/Referrals: Hesham Villalobos DO [Staff Physician] - See instructions Jose Valenzuela [Primary Care Provider] - See instructions Activity Restrictions/Add. Instructions Additional Instructions/Restrictions: Rest the extremity, apply ice for 15 minutes as tolerated three or four times per day, Wear the robson wrap for compression, Elevate the extremity as tolerated while you are resting. Take ibuprofen for pain. I sent in a prescription to your pharmacy. Follow up with Dr. Villalobos (orthopedics) if you continue to have symptoms. I put in a referral but you need to call his office and schedule an appointment. Only use the sling for a couple of days. Follow up with your regular doctor. GO TO THE ER FOR ANY WORSENING SYMPTOMS Clinical Impressions Clinical Impression: Left elbow contusion, Pain in left elbow Instructions Patient Instructions: How to Use a Sling, DI for Elbow Pain, How to Apply an Elastic Wrap on Elbow Discharge ED Provider: Branden Vail [facility] General Stated complaint: left elbow pain ao Time Seen by Provider: 09/03/23 08:48 History of Present Illness Provider Complaint: She states that she was roller skating yesterday when she fell and came down on her left elbow. Since then she has had left elbow pain. Her pain is worse when she bends the elbow. She denies any other injury. Related Data Home Medications Medication Instructions Recorded Confirmed dextroamphetamine-amphetamine ER 30 mg PO DAILY 09/03/23 09/03/23 30 mg 24hr capsule,extend release (Adderall XR) lamotrigine 200 mg tablet 200 mg PO DAILY 09/03/23 09/03/23 Previous Rx's Medication Instructions Recorded ibuprofen 800 mg tablet (IBU) 800 mg PO Q8HP PRN Moderate Pain 09/03/23 #30 tabs Allergies Allergy/AdvReac Type Severity Reaction Status Date / Time codeine Allergy Verified 06/13/22 13:53 morphine Allergy Verified 06/13/22 13:53 Sulfa (Sulfonamide Allergy Verified 06/13/22 13:53 Antibiotics) [facility] Disclaimer: The information contained in this section may have been updated after the patient was seen, as this information can be updated by other users. Medical History Anxiety Depression Kidney stone Surgical History History of appendectomy History of tubal ligation Social History Smoking Status: Current every day smoker alcohol intake: current alcohol intake frequency: a few times a month current occupational status: employed Travel in the last 8 weeks: None ROS Obtained: Yes All systems reviewed & no additional complaints except as documented Constitutional Constitutional: Denies chills and Denies fever(s) Eyes Eyes: Denies eye discharge ENT Ears, Nose, Mouth, and Throat: Denies dizziness, Denies otalgia and Denies sore throat Cardiovascular Cardiovascular: Denies chest pain Respiratory Respiratory: Denies shortness of breath, Denies chest congestion, Denies cough, Denies stridor and Denies wheezing Gastrointestinal Gastrointestingal: Denies nausea or vomiting Musculoskeletal Musculoskeletal: Reports as per HPI Integumentary/Breasts Skin/Breast: Denies rash Neurologic Neurologic: Denies dizziness and Denies paresthesias Allergic/Immunologic Allergic/Immunologic: Denies wheezing Physical Exam General General appearance: alert and in no apparent distress Head Head exam: atraumatic, normocephalic and normal inspection Eye Eye exam: Present normal appearance, PERRL and EOMI ENT ENT exam: Present normal exam, normal oropharynx, mucous membranes moist, TM's normal bilaterally and normal external ear exam Neck Neck exam: Present normal inspection, full ROM and trachea midline; Absent meningismus or lymphadenopathy Chest Chest inspection: Present normal inspection and symmetric chest wall rise; Absent tenderness Respiratory Respiratory exam: Present normal lung sounds bilaterally; Absent respiratory distress Cardiovascular Cardiovascular exam: Present regular rate and normal rhythm; Absent JVD Abdominal Exam Abdominal exam: Present soft and normal bowel sounds; Absent distention, tenderness or guarding Extremities Exam Extremities exam: Present normal capillary refill; Absent calf tenderness Expanded Upper Extremity Exam Left: Shoulder exam: Present normal inspection and full ROM; Absent tenderness or tenderness over AC joint Arm exam: Present normal inspection and full ROM; Absent tenderness Elbow exam: Present full ROM, tenderness, swelling and ecchymosis; Absent abrasion, laceration, deformity, crepitus, dislocation, erythema, effusion, pain w/ pronation/supination or tenderness over radial head Forearm/Wrist exam: Present normal inspection and full ROM; Absent tenderness Hand exam: Present normal inspection and full ROM; Absent tenderness Neuromotor exam: Normal wrist extension, thumb opposition, thumb IP flexion, thumb adduction and fingers 2-5 abduction Neurosensory exam: Normal radial nerve, ulnar nerve and median nerve Vascular exam: Normal capillary refill, radial pulse and ulnar pulse Back Exam Back exam: Present normal inspection; Absent tenderness Neurological Exam Neurological exam: Present alert and oriented X3 Psychiatric Psychiatric exam: Present normal affect and normal mood Skin Skin exam: Present warm, dry, intact and normal color Lymphatic Lymphatic Findings: no adenopathy Medical Decision Making Gregorio Inquiry Pt receiving controlled substance: No Orders (Tests/Meds): ORDERS Category Date Time Status Elbow XR left mininum 3 views [XR elbow LT min 3V] Stat Exams 09/03/23 08:46 Ordered
[2023-09-03 09:56] VITALS: BP 134/82; PULSE 90; RESP 19; TEMP 36.5; O2SAT 100
--- NOTE | 2023-09-03 09:59 | PC.NURSE ---
PATIENT REFUSED SLING
== END 2023-09-03 09:59 | disposition home or self-care (01) ==
PROVIDERS: Emergency Provider Nurse Practitioner Family; PCP Pediatrics
DX: M25.522 Pain in left elbow (principal); S50.02XA Contusion of left elbow, initial encounter; V00.121A Fall from non-in-line roller-skates, initial encounter
CPT/HCPCS: 73080; 99212; 99214; G0463

== ENCOUNTER 2025-02-18 16:06 | Emergency (ER) | payer OTHER, SELFPAY ==
--- OUTSIDE RECORDS SUMMARY | 2024-11-08 11:00 | XMS_ITS ---
Author Organization [facility] Address [address] [place] [address] Care Team Providers Care Embedded Hardware Engineer Name Role Phone Wellington CAMACHO, Cecilia Primary Care Provider Unavailab Lilly Rios Unavailable [phone] REASON FOR VISIT Reproductive & Sexual Health Encounters Encounter Location Date Provider Diagnosis [address] [address] 11/08/2024 [place] Plan Of Treatment No Information Progress Notes * Carleen MONTOYAeDOB:1990 (34 yo F)Acc No.[id number]:11/08/2024 Patient: Ana Paula RODRIGUEZ Provider: [place] APRN :1990 A ge:34 Y S ex:Female Date:11/08/2024 External Visit ID:[id number] Address:[address] [place] Pcp:Cecilia Paris MD Subjective: * Chief Complaints: * 1 . Reproductive & Sexual Health. * Medical History: Objective: * Vitals: Assessment: Plan: * Treatment: * Billing Information: * Visit Code: * Procedure Codes: Care Plan Details* * Electronic signature of Huyen Lake APRN on 02/18/2025 at 03:25 PM CDT Sign off status: Pending * Provider: [place] APRN Date: 0 11/08/2024 Generated for Printi ng/Faxing/eTransmitting on: 1 03:25 PM CDT
[2025-02-18 16:12] VITALS: BP 134/86; PULSE 88; RESP 18; TEMP 37.1; O2SAT 100; BMI 27.4
--- OUTSIDE RECORDS SUMMARY | 2025-02-18 16:26 | XMS_ITS | Clinical Summary ---
Author Organization Healthcare Address [address] [place] [address] Care Team Providers Care Guest Service Manager Name Role Phone Sofia Paris Carleen SALINAS Primary Care Provider [phone] Allergies Active Allergy Reactions Criticality Noted Date Comments Morphine Rash Low 11/12/2020 Other Unknown - Patient states they do not know rxn details,Other - please document in the comment field Low 02/21/2018 codeine sulfate - Itch morphine - unspecified Sulfa Drugs Rash Low 02/21/2018 Sulfa (Sulfonamide Antibiotics) Group - Rash Medications * This document contains information received from the source organization and may not represent a complete record from that organization. Adderall XR 30 MG 24 hr capsule 3 Active amphetamine-dextroa mphetamine (Adderall) 10 MG tablet 3 Active lamoTRIgine (LaMICtal) 200 MG tablet 3 Active naltrexone (ReVia) 50 MG tablet 3 Active ondansetron ODT (Zofran-ODT) 4 MG disintegrating tablet DISSOLVE 1 TABLET IN MOUTH EVERY 8 HOURS NEEDED FOR NAUSEA 3 Active QUEtiapine (SEROquel) 25 MG tablet 2 Active Active Problems Problem Noted Date Diagnosed Date Possible exposure to STD 10/29/2020 Immunizations Immunization Administration Dates Next Due Hep B, adult 07/12/2018 MMR 07/12/2018,06/14/2018 Tdap 06/14/2018 Varicella 07/12/2018,06/14/2018 Family History Medical History Relation Name Comments No Known Problems Father No Known Problems Mother Relation Name Status Comments Father Mother Social History Tobacco Use Types Packs/Day Years Used Date Smoking Tobacco: Former Cigarettes Smokeless Tobacco: Current Tobacco Cessation:Ready to Q uit: Not Asked; Counseling Given: Not Answered Comments:Vape Alcohol Use Standard Drinks/Week Comments Not Currently 0 (1 standard drink = 0.6 oz pur e alcohol) PHQ-2 Answer Date Recorded Patient Health Questionnaire-2 Score 0 06/25/2022 PHQ-2A Answer Date Recorded Patient Health Questionnaire-2 Score 0 06/25/2022 Comments No Sex and Gender Information Value Date Recorded Sex Assigned at Not on file Legal Sex Female 6:53 PM EDT Gender Identity Not on file Sexual Orientation Not on file Last Filed Vital Signs Vital Sign Reading Time Taken Comments Blood Pressure 115/74 06/25/2022 11:21 AM EST Pulse 70 06/25/2022 11:21 AM EST Temperature 36.8 C (98.2 F) 06/25/2022 11:21 AM EST Respiratory Rate 12 06/25/2022 11:21 AM EST Oxygen Saturation 98% 06/25/2022 11:21 AM EST Inhaled Oxygen Concentration - - Weight 59.9 kg (132 lb 0.9 oz) 06/25/2022 11:21 AM EST Height 157.5 cm (5' 2 ) 06/25/2022 11:21 AM EST Body Mass Index 24.15 06/25/2022 11:21 AM EST Plan of Treatment Health Maintenance Due Date Last Done Comments [facility]-Depression Screening 1991 [facility]-/Child/Adol SDOH Screenings 1991 [facility]- SDOH Screenings 2009 [facility]-Adult SDOH Screenings 2009 HPV Vaccines (1 - 3-dose SCDM series) 2018 [id number] Vaccine ( - season) 2024 10/23/2020, 09/30/2020 [facility]-Influenza Vaccine (#1) 12/31/202404/27, 02/05/2020, 01/31/2019, Additional history exists [facility]-Pap Smear 06/25/2025 06/25/2022 [facility]-Cervical Cancer Screening 06/25/2027 [facility]-HPV/Cotest 06/25/2027 06/25/2022, 06/25/2022 [facility]-DTaP,Tdap,and Td Vaccines (4 - Td or Tdap) 06/14/2028 06/14/2018, 01/30/2014, 09/18/2002 [facility]-Zoster Vaccines (1 of 2) 2041 07/12/2018, 06/14/2018 [facility]-Varicella Vaccines Completed 07/12/2018, 2018 [facility]-Hepatitis B Vaccines Completed 020, 07/12/2018, 09/18/2002 [facility]-HIB Vaccines Aged Out No longer e ligible based on patient's age to complete this topic [facility]-Hepatitis A Vaccines Aged Out No longer eligible based on patient's age to complete this topic [facility]-IPV Vaccines Aged Out No longer e ligible based on patient's age to complete this topic [facility]-Pneumococcal Vaccine: Pediatrics (0 to 5 Years) and At-Risk Patients (6 to 49 Years) Aged Out No longer eligible based on patient's age to complete this topic [facility]-Rotavirus Vaccines Aged Out No lo nger eligible based on patient's age to complete this topic Procedures Procedure Name Priority Date/Time Associated Diagnosis Comments PAP TEST - CYTOLOGY Routine 06/25/2022 11:52 AM EST Encounter for gynecological examination without abnormal finding from Last 3 Months or Most Recently Relevant to Health Maintenance Results * (ABNORMAL) Pap Test (06/25/2022 11:52 AM EST) Case Report Cytology Case: [id number] Authorizing Provider: Michelle Hogan APRN, DNP Collected: 06/25/2022 1152 Ordering Location: Obstetrics & Gynecology Received: 06/28/2022 0907 First Screen: Judy Cole Pathologist: Estela Lauren MD Specimen: ThinPrep Pap Test, Liquid-Based Cervical/Vagina l, CERVICAL/VAGINA L 07/01/2022 10:34 AM EST [facility] Interpretation ATYPICAL SQUAMOUS CELLS OF UNDETERMINED SIGNIFICANCE (ASCUS)(A) 07/01/2022 10:34 AM EST [facility] at 1034 EST Specimen Adequacy Satisfactory for evaluation; endocervical/tr ansformation zone component present. Slide imaged by the ThinPrep Imaging system and selected 22 hogan reviewed then full manual screening. 07/01/2022 10:34 AM EST [facility] Cervical cytology is a screening test primarily for squamous cancers and precursors and has associated false negative and positive results. New technologies such as liquid based sampling may decrease but will not eliminate all false negative results. Regular screening and follow-up of unexplained clinical signs and symptoms are recommended to minimize false negative results. Please see the ASCCP website (www.asccp.org) for followup recommendations . If HPV testing was requested, correlation with the results is suggested (please call Microbiology at [phone] for results). 07/01/2022 10:34 AM EST [facility] Menstrual Status Cyclic 07/02/19 10:34 AM EST [facility] Contraceptive History Not Applicable 07/01/2022 10:34 AM EST [facility] Screening Type Routine Screen 2022 10:34 AM EST [facility] High Risk? No 07/01/2022 10:34 AM EST [facility] HPV Testing Requested? Request HPV Testing Regardless of Pap Test Findings 07/01/2022 10:34 AM EST [facility] Previous Cancer History No 07/01/2022 10:34 AM EST [facility] Clinical Information Z01.419 - Encounter for gynecological examination without abnormal finding [ICD-10-CM] 07/01/2022 10:34 AM EST [facility] Last Menstrual Period 06/03/2022 07/01/2022 10:34 AM EST [facility] Swab Vaginal and cervical cytologic material / Unknown Non-blood Collection / Unknown 06/25/2022 11:52 AM EST 06/28/2022 9:07 AM EST us Michelle Hogan RN LAB CYTOLOGY ORDERABLES Final Result [facility] [address] [place] [address] from Last 3 Months or Most Recently Relevant to Health Maintenance Care Teams Guest Service Manager Relationship Specialty Start Date End Date Sofia Paris DO [address] [place] [address] PCP - General Hematology and Oncology 05/21/21
--- OUTSIDE RECORDS SUMMARY | 2025-02-18 16:26 | XMS_ITS | Patient Health Record ---
Author Organization [facility] Address [address] [place] [address] Care Team Providers Care Breastfeeding Program Coordinator Name Role Phone Cecilia Paris MD Primary Care Provider Vira Rios Lilly Unavailable [phone] Allergies Allergen (clinical drug ingredient) Drug/Non Drug Allergy documented on EMR Reaction Allergy Type Onset Date Status morphine Morphine rash Drug Allergy Active Substance with sulfonamide structure and antibacterial mechanism of action (substance) Sulfa Antibiotics hives Drug Allergy Active Reason For Referral No Information Medications Medication SIG (Take, Route, Frequency, Duration) Notes Start Date End Date Status Spironolactone 25 MG 1 tab(s) orally 2 times a day Active LaMICtal *Please review a nd pick correct strength-formulatio n from Jampp options. If intended option is not shown, discontinue and re-order from Quick Search* Active Adderall 20 MG 1 tab(s) orally 2 times a day Active Immunizations Vaccine Route Administration Date Status Comme nts Flulaval MDV Non-Medicare 3 y/o and > IM Intramuscular 01/14/2016 Administered Hepatitis B: Engerix-B Adult (20yr & older) IM Intramuscular 05/14/2019 Administered PPD Aplisol ID Intradermal 08/25/2018 Administered PPD Aplisol ID Intradermal 08/21/2019 Administered PPD Aplisol ID Intradermal 04/05/2021 Administered z2016 Fluzone Quad .5mL PFS 3 yrs (0.5mL Admin)NONMEDICARE IM Intramuscular 01/21/2017 Administered z2018 FluBLOK Quad 0.5mL PFS (0.5mL Admin) 18 y/o & older IM Intramuscular 01/31/2019 Administered [id number] Quad PFS (0.5mL Admin) 18 y/o & older IM Intramuscular 02/05/2020 Administered [id number] Quad PFS (0.5 mL Admin) 6 months & older IM Intramuscular 04/27/2021 Administered zPPD ID Intradermal 05/16/2015 Administered zPPD ID Intradermal 04/27/2016 Administered Social History Alcohol Misuse/Abuse (Audit C): Question Answer Notes Did you have a drink contain ing alcohol in the past year? Yes How often did you have a drink containing alcoho l? Monthly or less (1 point) How many drinks did you have on a typical occasi on? 1 or 2 (0 points) How often did you have six o r more drinks on one occasion? Never (0 points) Points: 1 Interpretation: Negative Problems Problem Type SNOMED Code ICD Code Onset Dates Problem Status W/U Status Risk Notes Problem Bipolar affective disorder, currently manic, moderate (843695239) Bipolar 1 disorder, manic, moderate (F31.12) Active confirmed Problem Moderate recurrent major depression (49365438) Depression, major, recurrent, moderate (F33.1) Active confirmed Plan Of Treatment Pending Test Test Name Order Date COMPREHENSIVE METABOLIC PANEL 08/02/2019 Urine Trichomonas vaginalis RNA, Qualita tive, TMA, Males 11/19/2018 CBC w/ Differential, w/ Platelet 020 Insurance Providers Payer Name Payer Address Payer Phone Subscriber Number Group Number Insured Name Patient Relationship to Insured Coverage Start Date Coverage End Date [employer] [place] [address] [address] [place] [address] [id number] Ana Paula Dunn Self - patient is the insured Medical (General) History Surgical History Surgery Date(Month/Year) tubal uretal stent appy Hospitalization History Reason Date(Month/Year) childbirth x3 as above
[2025-02-18] MEDS: diazePAM 10MG/2ML SYRINGE 5 MG IM (16:38)
[2025-02-18] MEDS: ACETAMINOPHEN 500MG TAB 1000 MG PO (16:38)
[2025-02-18] MEDS: KETOROLAC 30MG/ML VIAL 30 MG IM (16:38)
--- NOTE | 2025-02-18 16:41 | HMH.EDGENADL ---
Discharge Plan Disposition Patient Disposition: Home, Self-Care Condition: Good Prescriptions Prescriptions: New lidocaine 5 % adhesive patch,medicated 1 patch topical DAILY Qty: 15 0RF Rx Instructions: leave on most painful area for up to 12 hrs methocarbamol 750 mg tablet 750 mg PO BID PRN (Reason: breakthrough pain) Qty: 20 0RF No Action lamotrigine 200 mg tablet 200 mg PO DAILY dextroamphetamine-amphetamine [Adderall XR] 30 mg capsule,extended release 24hr 30 mg PO DAILY Referrals Follow up/Referrals: Jose Valenzuela [Primary Care Provider, Medical] - See instructions Activity Restrictions/Add. Instructions Additional Instructions/Restrictions: You should take Tylenol and Motrin [id number] for the next couple days. I will send you with lidocaine patches and a muscle relaxer. You should stretch, use heat and ice as needed. Return to the emergency department for any acute or worsening symptoms. Clinical Impressions Clinical Impression: Back pain Stand Alone Forms Stand Alone Forms: Work/School Release Instructions Patient Instructions: DI for Low Back Pain Print Language Print Language: Divehi Discharge ED Provider: Lilo Scott General Adult HPI General Chief complaint: Back Pain/Injury Stated complaint: Pain in Lower Back Time Seen by Provider: 02/18/25 16:20 Mode of Arrival: Ambulatory Source of Information: Patient Description of Symptoms (Recalled from ER Triage Doc. by RN): Pt was moving yesterday and said she thinks she pulled a muscle in her back. History of Present Illness HPI narrative: Patient is a 34-year-old female with no significant past medical history who presented to the emergency department with back pain. Patient states that she was moving a washer yesterday and now has developed back pain. Patient states that the pain does not radiate into her legs. Patient has not had any numbness or weakness. Patient did not have any trauma or falls. Patient denies any fevers. Patient denies any history of IV drug use. Patient has not had any difficulties ambulating or with urination. Patient states that she had some Flexeril at home which she took and did not give her any significant relief. Patient has no other significant medical problems, does not take any daily medications. Related Data Home Medications ?Medication ?Instructions ?Recorded ?Confirmed dextroamphetamine-amphetamine ER 30 mg PO DAILY 09/03/23 02/18/25 30 mg 24hr capsule,extend release (Adderall XR) lamotrigine 200 mg tablet 200 mg PO DAILY 09/03/23 02/18/25 Previous Rx's ?Medication ?Instructions ?Recorded lidocaine 5 % topical patch 1 patch topical DAILY #15 ea 02/18/25 methocarbamol 750 mg tablet 750 mg PO BID PRN breakthrough 02/18/25 pain #20 tabs Allergies Allergy/AdvReac Type Severity Reaction Status Date / Time codeine Allergy Unknown Verified 01/07/25 08:32 allergy reaction morphine Allergy Unknown Verified 01/07/25 08:32 allergy reaction Sulfa (Sulfonamide Allergy Unknown Verified 01/07/25 08:32 Antibiotics) allergy reaction PFSH [facility] Disclaimer: The information contained in this section may have been updated after the patient was seen, as this information can be updated by other users. Medical History (Updated 02/18/25 @ 16:30 by Lilo Scott DO) Skin problem Kidney stone Depression Anxiety Surgical History History of tubal ligation History of appendectomy Social History Smoking Status: Current every day smoker alcohol intake: current alcohol intake frequency: a few times a month current occupational status: employed Travel in the last 8 weeks?: None Have you lived/traveled outside US in past 30 days?: No Contact w/someone who lives/traveled outside US past 30 days?: No Exposure to someone with infectious disease in past 14 days?: No Do you have a fever (greater than 100.4 F or 38 C)?: No Have you tested positive for COVID-19?: No Exposed to someone with COVID-19 in past 14 days?: No Do you have a sore throat?: No Do you have a cough?: No Do you have any weakness?: No Do you have any diarrhea?: No Are you experiencing any unusual bleeding?: No Do you have any muscle aches/pain?: No Do you have any abdominal pain?: No Are you experiencing loss of taste or smell?: No Other Medical History Have you received the Flu Vaccine for this season: No Have you received the Pneumonia Vaccine: No ROS Obtained: Yes All systems reviewed & no additional complaints except as documented and Yes Systems reviewed as appropriate & no additional complaints except as documented Physical Exam General General appearance: alert and in no apparent distress Head Head exam: atraumatic, normocephalic and normal inspection Eye Eye exam: Present normal appearance, PERRL and EOMI; Absent scleral icterus ENT ENT exam: Present normal exam and normal external ear exam Neck Neck exam: Present normal inspection and full ROM Chest Chest inspection: Present normal inspection and symmetric chest wall rise Respiratory Respiratory exam: Present normal lung sounds bilaterally; Absent respiratory distress or wheezes Cardiovascular Cardiovascular exam: Present regular rate, normal rhythm and normal heart sounds Abdominal Exam Abdominal exam: Present soft and distention; Absent tenderness, guarding or rebound Extremities Exam Extremities exam: Present normal inspection and full ROM Back Exam Back exam: Present normal inspection, full ROM and paraspinal tenderness; Absent vertebral tenderness (no midline lumbar spine tenderness, tenderness in bilateral paraspinal regions ) Neurological Exam Neurological exam: Present alert, oriented X3, CN II-XII intact, normal gait and reflexes normal; Absent motor sensory deficit Psychiatric Psychiatric exam: Present normal affect and normal mood Skin Skin exam: Present warm and dry Medical Decision Making Medical Records Medical records reviewed: Yes I reviewed the patient's medical records. Screening: Per USPSTF and CDC recommendations, given the prevalence of disease in our region, it is our hospital?s policy to screen for HIV and viral Hepatitis for all patients aged 18 and over and those with ongoing risk factors. Gregorio Inquiry Pt receiving controlled substance: No Vital Signs: 02/18/25 16:12 02/18/25 16:50 Temperature 98.7 F 98.7 F Temperature Source Temporal Artery Scan Oral Pulse Rate 88 Pulse Rate [Right] 88 Respiratory Rate 18 15 Blood Pressure 134/86 Blood Pressure [Right Arm] 134/86 Blood Pressure Mean [Right Arm] 102 Blood Pressure Source Automatic Cuff Blood Pressure Source [Right Arm] Automatic Cuff Blood Pressure Position Sitting Blood Pressure Position [Right Arm] Sitting 02 Sat by Pulse Oximetry 100 Oxygen Delivery Method Room Air Room Air Lab Data Lab results reviewed: Yes I reviewed the patient's lab results. Orders (Tests/Meds): ED MEDICATIONS Discontinued Medications Generic Name Dose Route Start Last Admin Trade Name Freq PRN Reason Stop Dose Admin Acetaminophen 1,000 mg 02/18/25 16:25 02/18/25 16:38 Acetaminophen 500mg Tab PO 02/18/25 16:26 1,000 mg ONCE ONE Administration Diazepam 5 mg 02/18/25 16:25 02/18/25 16:38 Diazepam 10mg/2ml Syringe IM 02/18/25 16:26 5 mg ONCE ONE Administration Ketorolac Tromethamine 30 mg 02/18/25 16:25 02/18/25 16:32 Ketorolac 30mg/Ml Vial IV 02/18/25 16:26 Not Given ONCE ONE Ketorolac Tromethamine 30 mg 02/18/25 16:31 02/18/25 16:38 Ketorolac 30mg/Ml Vial IM 02/18/25 16:32 30 mg ONCE ONE Administration Medical Decision Narrative: Patient is an otherwise healthy 34-year-old female who presented to the emergency department with back pain after moving a washer yesterday. On arrival, patient was hemodynamically stable with unremarkable vital signs. Differential includes but not limited to: fracture, dislocation, musculoskeletal spasm, musculoskeletal sprain, amongst others. Given the patient had no midline spinal tenderness and patient had no associated trauma I felt that fracture was very unlikely. Patient does not have a history of IV drug use has not had any fever and no other neurologic deficits low concern for abscess or other acute infectious process. Did not feel that imaging was warranted. Patient was able to ambulate without difficulties. Patient had a nonfocal exam and otherwise normal neurologic exam. Patient was given symptomatic management in the emergency department with improvement in her symptoms. Patient was sent with muscle relaxers advised to use Tylenol and ibuprofen. Patient was otherwise discharged home in stable condition return precautions were discussed. Critical Care Critical Care Time Critical Care Time: No
[2025-02-18 16:50] VITALS: BP 134/86; PULSE 88; RESP 15; TEMP 37.1; O2SAT 100
== END 2025-02-18 16:51 | disposition home or self-care (01) ==
PROVIDERS: Emergency Provider Student in an Organized Health Care Education/Training Program; PCP Pediatrics
DX: M62.830 Muscle spasm of back (principal); M54.6 Pain in thoracic spine
CPT/HCPCS: 96372; 99283; J1885; J3360